=== PATIENT | female | born 1960 | race Caucasian/White ===

== ENCOUNTER 2024-11-10 13:52 | Emergency (ER) | payer MEDICARE, MEDICAID ==
[2024-11-10] MEDS ORDERED: Sodium Chloride 0.9% 10 ML Syringe FLUSH PRN (14:57)
[2024-11-10] MEDS ORDERED: Sodium Chloride 0.9% 2.5 ML Syringe FLUSH PRN (14:57)
[2024-11-10 15:09] LABS: HEMATOCRIT 42.8 % (37.0-47.0); HEMOGLOBIN 14.3 g/dL (12.0-16.0); MEAN CORPUSCULAR HEMOGLOBIN 28.8 pg (28.0-32.0); MEAN CORPUSCULAR HGB CONC 33.4 g/dL (32.0-36.0); MEAN CORPUSCULAR VOLUME 86.1 fL (83.0-99.0); MEAN PLATELET VOLUME 9.6 fL (9.4-12.3); PLATELET COUNT,PLT 273 K/uL (150-400); RED BLOOD CELL COUNT 4.97 M/uL (4.10-5.30); WHITE BLOOD CELL COUNT,WBC 19.31 K/uL (3.9-11.3)
[2024-11-10 15:20] LABS: A/G RATIO 0.7 (0.9-1.6); ALBUMIN 3.7 g/dL (3.4-5.0); BILIRUBIN TOTAL 0.8 mg/dL (0.2-1.0); CALCIUM 9.5 mg/dL (8.5-10.1); CREATININE 1.1 mg/dL (0.6-1.0); EST CRCL DRUG DOSING (CG) 47.1 mL/min; POTASSIUM,K 3.9 mmol/L (3.5-5.1); PROTEIN TOTAL,TP 8.8 g/dL (6.4-8.2)
[2024-11-10 15:22] LABS: APPEARANCE,URINE SLT CLOUDY; BILIRUBIN,URINE NEGATIVE (NEGATIVE); COLOR,URINE YELLOW; GLUCOSE,URINE NEGATIVE (NEGATIVE); KETONES,URINE TRACE mg/dL (NEGATIVE); LEUKOCYTE ESTERASE,URINE NEGATIVE (NEGATIVE); NITRITE,URINE NEGATIVE (NEGATIVE); OCCULT BLOOD,URINE SMALL (NEGATIVE); PROTEIN,URINE 30 mg/dL (NEGATIVE)
[2024-11-10] MEDS: Sodium Chloride 0.9% 1,000 ML IV ONE (15:28)
[2024-11-10] MEDS: cefTRIAXone 1 GM in Sodium Chloride 0.9% 50 ML IV ONE (15:29)
[2024-11-10 15:36] LABS: BACTERIA,URINE 2+ (NEGATIVE); EPITHELIAL CELLS,URINE MODERATE (NONE-FEW); MUCUS,URINE LIGHT (NONE-MOD); RBC,URINE 0-1 (0-2/HPF); WBC,URINE 0-3 (0-5/HPF)
[2024-11-10 15:49] LABS: BAND ABSOLUTE MAN 0.58; BAND PERCENT MAN 3 %; LYMPHOCYTES ABSOLUTE MAN 1.74 K/uL (1.00-4.80); LYMPHOCYTES PERCENT MAN 9 % (24-44); SEG NEUTROPHILS ABSOLUTE MAN 16.03 K/uL (1.80-7.70); SEG NEUTROPHILS PERCENT MAN 83 % (41-71)
[2024-11-10 15:50] LABS: MONOCYTES ABSOLUTE MAN 0.97 K/uL (0.00-0.80); MONOCYTES PERCENT MAN 5 % (0-8)
[2024-11-10 16:01] LABS: LACTIC ACID 0.6 mmol/L (0.4-2.0)
[2024-11-10 18:15] VITALS: BP 144/91; PULSE 106
== END 2024-11-10 18:13 | disposition home or self-care (01) ==
LOC: MW.ED 13:52
DX: J02.0 Streptococcal pharyngitis (principal); I10 Essential (primary) hypertension; E66.9 Obesity, unspecified; Z68.33 Body mass index [BMI] 33.0-33.9, adult; Z90.49 Acquired absence of other specified parts of digestive tract; Z90.710 Acquired absence of both cervix and uterus; Z91.041 Radiographic dye allergy status; Z75.8 Other problems related to medical facilities and other health care
CPT/HCPCS: 36415; 71046; 80053; 81001; 83605; 84484; 85025; 87040; 87428; 87651; 93005; 96361; 96365; 99285; J0696; J3490; J7030; 93010; 99283